=== PATIENT | male | born 1955 | race Caucasian/White ===

== ENCOUNTER → 2022-08-20 13:04 | Outpatient (CLI) | payer OTHER, SELFPAY ==
--- NOTE | ~2022-08-20 | CT_ITS ---
EXAMINATION: CT abdomen pelvis wo con DATE: 08/20/2022 13:20 INDICATION: Left lower quadrant abdominal pain. History of urinary tract calculi. TECHNIQUE: Computed tomography (CT) of the abdomen and pelvis was performed without intravenous contr ast. Automated exposure control and iterative reconstruction technique were employed. Exam dose: 555 .04 mGy-cm total exam DLP. COMPARISON: None. FINDINGS: The lung bases are clear of infiltrate or consolidation. Normal heart size. No pericardial or pleural effusion. Small sliding hiatal hernia. Approximately 1.6 cm inferomedial right hepatic lobe hypoattenuating lesion with density near fluid, likely a hepatic cyst. Approximately 1.4 cm and 1.3 cm posterior upper right hepatic lobe hypoattenuating lesions, possibly hepatic cysts or hemangiomas. The gallbladder is present. No pericholecystic fluid or fat stranding or gallbladder wall thickening is evident. No bile duct or pancreatic duct dilatation. Small pancreatic tail calcification, possibly due to mild chronic pancreatitis. No pancreatic mass lesion or calcification is noted otherwise. Normal splenic size. Normal morphology of the adrenal glands. Approximately 4 mm upper pole nonobstructing right renal calculus. A couple of very subtle pinpoint n onobstructing lower pole left renal calculi are noted. No ureteral calculus or hydroureteronephrosis is noted on either side. No renal mass lesion is evident on this limited noncontrast examination. Normal caliber of the abdominal aorta. No intraperitoneal or retroperitoneal or pelvic mass lesion or adenopathy or ascites. The urinary bladder and prostate gland are unremarkable. Normal appendix. There is diverticulosis of the left and right colon; no evidence of diverticulitis. No bowel obstruction or intraperitoneal free air. No suspicious osteolytic or osteoblastic lesions. IMPRESSION: Bilateral nonobstructive nephrolithiasis Small sliding hiatal hernia Normal appendix Diverticulosis of the colon Several low attenuation lesions of the liver, which are likely cysts or hemangiomas Reviewed, dictated and finalized at [facility]. Reviewed, dictated and finalized at [facility]. IMPRESSION: Bilateral nonobstructive nephrolithiasis Small sliding hiatal hernia Normal appendix Diverticulosis of the colon Several low attenuation lesions of the liver, which are likely cysts or hemangi omas
== END ==
PROVIDERS: PCP Internal Medicine; Visit Provider Internal Medicine
DX: Z87.442 Personal history of urinary calculi (principal); K44.9 Diaphragmatic hernia without obstruction or gangrene; K57.30 Diverticulosis of large intestine without perforation or abscess without bleeding; K76.9 Liver disease, unspecified
CPT/HCPCS: 74176